=== PATIENT | male | born 1970 | race Caucasian/White ===

== ENCOUNTER 2018-05-23 20:20 | Inpatient (IN) | payer OTHER ==
[2018-05-23] MEDS ORDERED: Acetaminophen 500 MG TAB ONE (22:26)
[2018-05-23 22:30] LABS: Troponin I Less than 0.010 ng/mL (< 0.028)
[2018-05-23] MEDS ORDERED: Acetaminophen 325 MG TAB PO PRN (23:32)
[2018-05-23] MEDS ORDERED: Dextrose 50% Abboject 50 ML SYRINGE SLOW IVP PRN (23:35)
[2018-05-23] MEDS ORDERED: Dextrose 5% in Water 1,000 ML IV PRN (23:35)
[2018-05-24 01:42] LABS: Troponin I Less than 0.010 ng/mL (< 0.028)
[2018-05-24] MEDS: Furosemide 40 MG/4 ML VIAL SLOW IVP SCH ×2 (05:36→13:19)
[2018-05-24 06:14] LABS: #Basophils 0.1 thou/uL (0.0-0.2); #Eosinphils 0.3 thou/uL (0.0-0.7); #Lymphocytes 1.9 thou/uL (1.20-3.40); #Monocytes 0.8 thou/uL (0.11-0.59); #Neutrophils 3.3 thou/uL (1.40-6.50); %Eosinophils 4.5 % (0.0-10.0); %Lymphocytes 30.3 % (21.0-51.0); %Monocytes 12.7 % (0.0-10.0); %Neutrophils 51.5 % (42.0-75.0); Hemoglobin 13.2 g/dL (14.0-18.0); Mean Corpuscular HGB CONC 32.3 g/dL (32.0-36.0); Mean Corpuscular Hemoglobin 31.8 pg (27.0-31.0); Mean Corpuscular Volume 98.3 fL (78.0-98.0); Mean Platelet Volume 8.6 fL (7.4-10.4); Platelet Count 216 thou/uL (130-400); RBC Distribution Width 11.7 % (11.5-14.5); Red Blood Cell (RBC) Count 4.14 mill/uL (4.70-6.10); White Blood Cell (WBC) Count 6.4 thou/uL (4.8-10.8)
[2018-05-24 06:33] LABS: Anion Gap 16 mmol/L (10-20); BUN (Urea Nitrogen) 19 mg/dL (8.9-20.6); Calc. Creatinine Clearance 74 mL/min (70-130); Calcium 8.6 mg/dL (7.8-10.44); Carbon Dioxide 20 mmol/L (22-29); Chloride 104 mmol/L (98-107); Estimated GFR-MDRD 67; Glucose 158 mg/dL (70-105); Potassium 3.6 mmol/L (3.5-5.1); Sodium 136 mmol/L (136-145)
[2018-05-24 06:39] LABS: Troponin I Less than 0.010 ng/mL (< 0.028)
--- NOTE | 2018-05-24 06:39 | HP ---
PRIMARY CARE PHYSICIAN: CODE STATUS: FULL CODE. TIME OF EVALUATION: 9:00 p.m. CHIEF COMPLAINT: Worsening shortness of breath. HISTORY OF PRESENT ILLNESS: This is a 47 years old male patient with past medical history of chronic alcohol abuse. The patient drinks 5-6 beers every day and also history of diabetes who came to the hospital after having gradually worsening shortness of breath. The patient was unable to complete hi s activities of daily living, symptoms are severe worsening with exertion, improved with resting. No fever, no chills, no chest pain, no cough, no sputum production. REVIEW OF SYSTEMS: Constitutional: The patient had no fever or chills. The patient reported genera lized weakness. Respiratory: No cough or sputum production. Cardiovascular: No chest pain, palpit ations. The patient has exertional shortness of breath that improved with rest. Gastrointestinal: No nausea, no vomiting, diarrhea or abdominal pain. 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 Genitourinary: No burning on urination. Extremities: Bilateral leg swelling. All other syst ems are reviewed and negative except for the findings mentioned above. PAST MEDICAL HISTORY: Positive for chronic alcoholism, diabetes type 2. PAST SURGICAL HISTORY: No surgical history. PSYCHIATRIC HISTORY: Depression. SOCIAL HISTORY: The patient use tobacco. KNOWN ALLERGIES: No known drug allergies. REPORTED MEDICATIONS: Please see medication reconciliation for details. PHYSICAL EXAMINATION: VITAL SIGNS: On presentation, blood pressure 84/64 with heart rate 104, respiratory rate was 21, tem perature 98.7, O2 saturation was 99 on room air. The blood pressure has remained in low 90s. GENERAL APPEARANCE: The patient is alert, oriented, not in any acute distress. HEENT: Eyes: Normal conjunctivae. Moist oral mucosa. Anicteric. NECK: Bilateral JVD that is prominent. RESPIRATORY: Bilateral air entry, bilateral rales in the bases. No wheezing. Symmetric expansion. CARDIOVASCULAR: The patient is tachycardic, regular rhythm. No murmurs, no gallop. Bilateral leg e mariel. ABDOMEN: Soft, normal bowel sounds. MUSCULOSKELETAL: Baseline range of motion and strength. No tenderness. SKIN: Warm and intact. No pallor, no rash. No redness. Peripheral pulses are present. Capillary refill seems to be intact. NEUROLOGIC: No evidence of any new focal weakness. Baseline speech. Cranial nerves seem to be inta ct. PSYCHIATRIC: The patient is anxious, optimal judgment. Chest x-ray was reviewed and showed prominent cardiac silhouette and pulmonary vascular with mild rig ht pleural effusion. It is mainly related with congestive heart failure, correlate clinically. He m ay follow up until complete resolution is recommended. EKG was reviewed. The patient has normal sinus rhythm, possible left atrial enlargement acute NC so far. LABORATORY DATA: Prior to transfer paper work and labs were reviewed. Beta natriuretic peptide 2195 , glucose 385, BUN 18, creatinine 1.43, sodium 137, potassium 4.1, chloride 101, carbon dioxide 18, c alcium 9.7, bilirubin total 0.5, alk phos 185. LFTs mildly elevated with AST 59, ALT 78, albumin 4.2 . Beta hydroxybutyrate 2.6. Troponin was negative. Lactic acid 2.6. D-dimer 1.36. ABG was done w ith pH of 7.47, pCO2 of 24 and pO2 of 81 on room air. White count 7.1, hemoglobin 14, MCV 93, platel et count 249. CT angio of the chest was done and that findings were read as follow: The patient has a pulmonary tr unk and main pulmonary arteries are of normal caliber. No pulmonary embolism was seen. Mild pleural effusion and small to moderate right pleural effusion, no pneumothorax, minimal mediastinum, lungs a re clear. ASSESSMENT AND PLAN: The patient will be placed in the hospital with the following medical problem: 1. Acute new onset congestive heart failure, patient has elevated proBNP. CT showing a pleural effu héctor and pulmonary congestion. We will place the patient on diuresis. 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 We will monitor on tele, we will adjust the treatmen t as needed. 2. History of alcohol abuse. The patient takes up to 6 beers on a daily basis. The last time that he drank was 2-3 days ago, reported without any episode of delirium, we will monitor, we will put him on GRAEME protocol and adjust treatment accordingly. 3. History of depression. Reconcile home medications. 4. Deep venous thrombosis prophylaxis.
[2018-05-24] MEDS: Enoxaparin Sodium 40 MG/0.4 ML SYRINGE SC SCH (08:22)
[2018-05-24] MEDS: Aspirin 325 MG TAB PO SCH (08:22)
[2018-05-24] MEDS: Atorvastatin Calcium 10 MG TAB PO SCH (08:22)
[2018-05-24] MEDS: FLUoxetine HCl 20 MG CAP PO SCH (08:22)
--- NOTE | 2018-05-24 16:51 | PDOC.PN ---
- Subjective Encounter Start Date: 05/24/18 Encounter Start Time: 08:50 Pt seen for followup re: systolic CHF exacerbation. Denies chest pain, fevers. Cough+. SOBOE+ - Objective MAR Reviewed: Yes Vital Signs & Weight: Vital Signs (12 hours) Temp Pulse Resp BP 05/24/18 16:00 85 20 96/63 05/24/18 11:46 97.7 F 91 18 96/71 05/24/18 08:00 97.6 F 83 18 95/60 Weight Admit Weight 151 lb 11.2 oz Weight 148 lb 12.8 oz I&O: 05/23/18 05/24/18 05/25/18 06:59 06:59 06:59 Intake Total 350 Balance 350 Result Diagrams: 05/24/18 05:27 05/24/18 05:27 Additional Labs: Accuchecks 05/24/18 05/24/18 05/23/18 11:23 06:14 23:49 POC Glucose 216 H 155 H 94 EKG Reviewed by me: Yes (Tele: NSR) Phys Exam - Physical Examination Constitutional: NAD HEENT: moist MMs, sclera anicteric, oral pharynx no lesions, 2+ tonsils Neck: no nodes, supple, full ROM JVD Respiratory: no wheezing, no rhonchi Venancio crackles Cardiovascular: RRR, no rub S1, S2 Gastrointestinal: soft, non-tender, no distention, positive bowel sounds Neurological: moves all 4 limbs Psychiatric: normal affect, A&O x 3 Dx/Plan (1) Acute on chronic systolic heart failure, NYHA class 3 Code(s): I50.23 - ACUTE ON CHRONIC SYSTOLIC (CONGESTIVE) HEART FAILURE Status : Acute Comment: continue furosemide IV (2) Cardiomyopathy Code(s): I42.9 - CARDIOMYOPATHY, UNSPECIFIED Status: Acute Comment: likely alcohol-induced cardiomyopathy. Start beta anne-marie and ACEI when blood pressure improves. Pt counseled re: alcohol cessation. (3) Hypotension Status: Acute Comment: Start beta anne-marie and ACEI when blood pressure improves. (4) Alcohol abuse Code(s): F10.10 - ALCOHOL ABUSE, UNCOMPLICATED Status: Chronic Comment: pt on ASE protocol, start thiamine (5) DM2 (diabetes mellitus, type 2) Status: Chronic Comment: continue accuchecks, insulin sliding scale (6) Dyslipidemia Code(s): E78.5 - HYPERLIPIDEMIA, UNSPECIFIED Status: Chronic Comment: continue statin - Plan out of bed/ambulate, DVT proph w/lovenox * . Review of Systems - Review of Systems Constitutional: negative: fever, chills, sweats, weakness, malaise Respiratory: Cough, Dry, SOB with Excertion. negative: Shortness of Breath, Hemoptysis, Pleuritic Pain, Sputum, Wheezing Cardiovascular: negative: chest pain, palpitations, orthopnea, paroxysmal nocturnal dyspnea, edema, light headedness Gastrointestinal: negative: Nausea, Vomiting, Abdominal Pain, Diarrhea, Constipation, Melena, Hematochezia Genitourinary: negative: Dysuria, Frequency, Incontinence, Hematuria, Retention Skin: negative: Rash, Lesions, Vikram, Bruising - Medications/Allergies Allergies/Adverse Reactions: Allergies Allergy/AdvReac Type Severity Reaction Status Date / Time No Known Allergies Allergy Verified 05/23/18 23:28 Medications: Current Medications Acetaminophen (Tylenol) 650 mg PO Q4H PRN PRN Reason: Headache/Fever/Mild Pain (1-3) Aspirin (Aspirin) 325 mg PO DAILY [facility] Last Admin: 05/24/18 08:22 Dose: 325 mg Atorvastatin Calcium (Lipitor) 10 mg PO DAILY [facility] Last Admin: 05/24/18 08:22 Dose: 10 mg Dextrose/Water (Dextrose 50%) 25 gm SLOW IVP PRN PRN PRN Reason: Hypoglycemia Enoxaparin Sodium (Lovenox) 40 mg SC 0900 [facility] Last Admin: 05/24/18 08:22 Dose: 40 mg Fluoxetine HCl (Prozac) 40 mg PO DAILY [facility] Last Admin: 05/24/18 08:22 Dose: 40 mg Furosemide (Lasix) 40 mg SLOW IVP 0600,1400 [facility] Last Admin: 05/24/18 13:19 Dose: 40 mg Glucagon (Glucagon) 1 mg IM PRN PRN PRN Reason: Hypoglycemia Dextrose/Water (D5w) 1,000 mls @ 0 mls/hr IV .Q0M PRN PRN Reason: Hypoglycemia Insulin Human Lispro (Humalog) 0 units SC .MILD SLIDING SCALE PRN PRN Reason: Mild Correctional Scale Ondansetron HCl (Zofran) 4 mg IVP Q6H PRN PRN Reason: Nausea/Vomiting
[2018-05-24] MEDS: Thiamine HCl 200 MG/2 ML VIAL SLOW IVP SCH (17:53)
[2018-05-24] MEDS: HumaLOG 300 UNITS/3 ML VIAL SC PRN (17:54)
[2018-05-25] MEDS: Furosemide 40 MG/4 ML VIAL SLOW IVP SCH ×2 (05:19→13:25)
[2018-05-25 05:37] LABS: #Basophils 0.1 thou/uL (0.0-0.2); #Eosinphils 0.2 thou/uL (0.0-0.7); #Monocytes 0.7 thou/uL (0.11-0.59); #Neutrophils 3.4 thou/uL (1.40-6.50); %Basophils 1.2 % (0.0-1.0); %Eosinophils 3.8 % (0.0-10.0); %Lymphocytes 30.7 % (21.0-51.0); %Monocytes 11.4 % (0.0-10.0); Hemoglobin 14.1 g/dL (14.0-18.0); Mean Corpuscular HGB CONC 31.8 g/dL (32.0-36.0); Mean Corpuscular Hemoglobin 31.8 pg (27.0-31.0); Mean Corpuscular Volume 99.7 fL (78.0-98.0); Mean Platelet Volume 8.8 fL (7.4-10.4); Platelet Count 239 thou/uL (130-400); RBC Distribution Width 11.7 % (11.5-14.5); Red Blood Cell (RBC) Count 4.43 mill/uL (4.70-6.10); White Blood Cell (WBC) Count 6.4 thou/uL (4.8-10.8)
[2018-05-25 05:55] LABS: Anion Gap 14 mmol/L (10-20); BUN (Urea Nitrogen) 28 mg/dL (8.9-20.6); Calc. Creatinine Clearance 74 mL/min (70-130); Calcium 8.9 mg/dL (7.8-10.44); Carbon Dioxide 22 mmol/L (22-29); Chloride 101 mmol/L (98-107); Estimated GFR-MDRD 67; Glucose 179 mg/dL (70-105); Potassium 3.9 mmol/L (3.5-5.1); Sodium 133 mmol/L (136-145)
[2018-05-25] MEDS ORDERED: Communication Order-Pharmacy FS SCH (08:30)
[2018-05-25] MEDS: Sodium Chloride 0.9% 1,000 ML IV SCH ×2 (09:33→17:57)
--- NOTE | 2018-05-25 10:19 | PDOC.CTH ---
Cardiology Progress Note - Subjective C/O SOB. No CP. C/O coughing. Dry. Did walk in guy yesterday. - Objective Vital Signs Temp Pulse Resp BP BP Pulse Ox 05/25/18 08:00 98.1 F 89 18 105/75 98 05/25/18 04:36 98.2 F 90 17 103/71 98 05/24/18 23:00 103/74 Admit Weight 151 lb 11.2 oz Weight 149 lb 9.6 oz 05/24/18 05/25/18 05/26/18 06:59 06:59 06:59 Intake Total 350 1610 Output Total 1900 Balance 350 -290 - Physical Examination General/Neuro: alert & oriented x3 Neck: no JVD present Lungs: other: (decreased BS at bases) Heart: RRR Abdomen: NT/ND Extremities: other: (no edema) - Telemetry Telemetry Rhythm: SR - Labs Result Diagrams: 05/25/18 04:54 05/25/18 04:54 Troponin/CKMB Troponin I Less than 0.010 ng/mL (< 0.028) 05/24/18 05:28 - Assessment/Plan 1. Acute on chronic systolic CHF 2. Severe ROVING SIZER (EF 15-20%) 3. History of heavy alcohol use 4. Uncontrolled DM-II Continue diuresis. Plan for LHC to r/o CAD when euvolemic.
[2018-05-25] MEDS: FLUoxetine HCl 20 MG CAP PO SCH (10:44)
[2018-05-25] MEDS: Enoxaparin Sodium 40 MG/0.4 ML SYRINGE SC SCH (10:44)
[2018-05-25] MEDS: Atorvastatin Calcium 10 MG TAB PO SCH (10:44)
[2018-05-25] MEDS: Aspirin 325 MG TAB PO SCH (10:44)
[2018-05-25] MEDS: Ondansetron HCl/PF 4 MG/2 ML Vial IVP PRN (10:47)
--- NOTE | 2018-05-25 11:16 | CON ---
DATE OF CONSULTATION: 05/25/2018 REASON FOR CONSULTATION: Cardiomyopathy. HISTORY OF PRESENT ILLNESS: Mr. Bhagat is a 47-year-old gentleman who has not been seen by Cardiology in the past. He recently presented with increased shortness of breath and lower extremity edema. _ ___ last 2-3 weeks. No chest pain or pressure noted. He has a very strong alcohol history, drinking 6-12 alcoholic beverages per day. No previous history of underlying coronary artery disease. No pr evious history of cardiomyopathy in his family. PAST MEDICAL HISTORY: Diabetes mellitus, alcohol use. FAMILY HISTORY: Positive tobacco use. ALLERGIES: None. HOME MEDICATIONS: Glyburide/metformin, fluoxetine, Trulicity, Invokana and atorvastatin. REVIEW OF SYSTEMS: Ten point review of system is reviewed and as above, otherwise negative, review d ate is 05/24/2018. PHYSICAL EXAMINATION: VITAL SIGNS: Blood pressure 105/75, pulse 89, temperature afebrile. GENERAL: Patient is a pleasant male who is in no acute distress. The patient appears his stated age . NEUROLOGIC: The patient is alert and oriented times 3 with no focal neurologic deficits. HEENT: Sclerae without icterus. Mouth has moist mucous membranes with normal pallor. NECK: No JVD. Carotid upstroke brisk. No bruits bilaterally. LUNGS: Clear to auscultation with unlabored respirations. BACK: No scoliosis or kyphosis. CARDIAC: Regular rate and rhythm with normal S1 and S2. No S3 or S4 noted. No significant rubs, mu rmurs, thrills, or gallops noted throughout the precordium. PMI is not displaced. There is no sandy ternal heave. ABDOMEN: Soft, nontender, nondistended. No peritoneal signs present. No hepatosplenomegaly. No ab normal striae. EXTREMITIES: 1-2+ pitting edema. SKIN: No gross abnormalities. PERTINENT LABS: Hemoglobin 14.1, white blood cell count 6.4, creatinine 1.16, platelet count 239, wh ite blood cell count 6.4. Echo with Doppler shows LVEF 15%-20%. LV appears mildly dilated. IMPRESSION: 1. New onset cardiomyopathy. 2. Alcohol abuse. 3. Diabetes mellitus. RECOMMENDATIONS: Mr. Bhagat's main risk factor for underlying coronary artery disease is diabetes justina litus. His cardiomyopathy likely related to alcohol abuse. I discussed the importance of alcohol ce ssation, but will need assistance. He states he recently decreased his alcohol consumption over the last week significantly to 1-2 alcoholic beverages per day and was concerned about his symptoms. At this point, I would recommend low dose beta anne-marie therapy initiation of treatment. ____ be given. I also discussed coronary angiography plus PCI with Mr. Bhagat. The risks of the procedure include bu t are not limited to the following: , stroke, LA, need for emergency surgery, loss of limb, ble eding, and infection, as well as a reaction to the dye causing kidney failure and needing long-term d ialysis. I also discussed the risks of PCI to include all of the above including coronary dissection and perforation in addition to acute stent thrombosis and restenosis. All questions about the proce dure were answered. Given the above, the patient agreed to proceed with coronary angiography and pos sible PCI. I also discussed drug-coated versus nondrug coated stent placement. There are ____. We will proceed if needed. He states he can be compliant with medications. He also need a LifeVest. 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 I did state he will need to discuss this with his employer.
--- NOTE | 2018-05-25 17:46 | PDOC.PN ---
- Subjective Encounter Start Date: 05/25/18 Encounter Start Time: 08:40 Pt seen for followup re: systolic CHF exacerbation. Denies chest pain. Shortness of breath is better. Cough+ - Objective MAR Reviewed: Yes Vital Signs & Weight: Vital Signs (12 hours) Temp Pulse Pulse Pulse Resp BP BP 05/25/18 16:00 97.8 F 88 17 05/25/18 13:06 94 90 114/71 105/75 05/25/18 12:00 97.5 F L 91 16 05/25/18 08:00 98.1 F 89 18 BP Pulse Ox Pulse Ox 05/25/18 16:00 104/72 96 05/25/18 13:06 95 05/25/18 12:00 105/76 95 05/25/18 08:00 105/75 98 Weight Admit Weight 151 lb 11.2 oz Weight 149 lb 9.6 oz I&O: 05/24/18 05/25/18 05/26/18 06:59 06:59 06:59 Intake Total 350 1610 600 Output Total 1900 1200 Balance 350 -290 -600 Result Diagrams: 05/25/18 04:54 05/25/18 04:54 Additional Labs: Accuchecks 05/25/18 05/25/18 05/25/18 17:02 10:51 06:18 POC Glucose 320 H 149 H 173 H 05/24/18 05/24/18 20:13 17:44 POC Glucose 227 H 351 H EKG Reviewed by me: Yes (Tele: NSR) Phys Exam - Physical Examination Constitutional: NAD HEENT: moist MMs, sclera anicteric, oral pharynx no lesions, 2+ tonsils Neck: no nodes, no JVD, supple, full ROM Biul crackles Cardiovascular: RRR, no rub S1, S2 Gastrointestinal: soft, non-tender, no distention, positive bowel sounds Neurological: moves all 4 limbs Psychiatric: normal affect, A&O x 3 Dx/Plan (1) Acute on chronic systolic heart failure, NYHA class 3 Code(s): I50.23 - ACUTE ON CHRONIC SYSTOLIC (CONGESTIVE) HEART FAILURE Status : Acute Comment: Improving, continue IV furosemide (2) Cardiomyopathy Code(s): I42.9 - CARDIOMYOPATHY, UNSPECIFIED Status: Acute Comment: likely alcohol-induced cardiomyopathy. Blood pressure improving, will start Coreg. If tolerated, will add ACEI. Pt to go for cath to r/o ischemic etiology (3) Hypotension Status: Acute Comment: Improved (4) Alcohol abuse Code(s): F10.10 - ALCOHOL ABUSE, UNCOMPLICATED Status: Chronic Comment: pt on ASE protocol (5) DM2 (diabetes mellitus, type 2) Status: Chronic Comment: Sugars high but pt will be NPO tonight. Add glyburide when pt is eating again, add metformin 48 hrs after cath (6) Dyslipidemia Code(s): E78.5 - HYPERLIPIDEMIA, UNSPECIFIED Status: Chronic Comment: continue statin - Plan * . Review of Systems - Review of Systems Constitutional: negative: fever, chills, sweats, weakness, malaise Respiratory: Cough, Dry, SOB with Excertion. negative: Shortness of Breath, Hemoptysis, Pleuritic Pain, Sputum, Wheezing Cardiovascular: negative: chest pain, palpitations, orthopnea, paroxysmal nocturnal dyspnea, edema, light headedness Gastrointestinal: negative: Nausea, Vomiting, Abdominal Pain, Diarrhea, Constipation, Melena, Hematochezia Genitourinary: negative: Dysuria, Frequency, Incontinence, Hematuria, Retention Skin: negative: Rash, Lesions, Vikram, Bruising - Medications/Allergies Allergies/Adverse Reactions: Allergies Allergy/AdvReac Type Severity Reaction Status Date / Time No Known Allergies Allergy Verified 05/23/18 23:28 Medications: Current Medications Acetaminophen (Tylenol) 650 mg PO Q4H PRN PRN Reason: Headache/Fever/Mild Pain (1-3) Aspirin (Aspirin) 325 mg PO DAILY [facility] Last Admin: 05/25/18 10:44 Dose: 325 mg Atorvastatin Calcium (Lipitor) 10 mg PO DAILY [facility] Last Admin: 05/25/18 10:44 Dose: 10 mg Dextrose/Water (Dextrose 50%) 25 gm SLOW IVP PRN PRN PRN Reason: Hypoglycemia Enoxaparin Sodium (Lovenox) 40 mg SC 0900 [facility] Stop: 05/25/18 21:00 Last Admin: 05/25/18 10:44 Dose: 40 mg Fluoxetine HCl (Prozac) 40 mg PO DAILY [facility] Last Admin: 05/25/18 10:44 Dose: 40 mg Furosemide (Lasix) 60 mg SLOW IVP 0600,1400 [facility] Last Admin: 05/25/18 13:25 Dose: 60 mg Glucagon (Glucagon) 1 mg IM PRN PRN PRN Reason: Hypoglycemia Dextrose/Water (D5w) 1,000 mls @ 0 mls/hr IV .Q0M PRN PRN Reason: Hypoglycemia Sodium Chloride (Normal Saline 0.9%) 1,000 mls @ 100 mls/hr IV .Q10H [facility] Last Admin: 05/25/18 09:33 Dose: Not Given Insulin Human Lispro (Humalog) 0 units SC .MILD SLIDING SCALE PRN PRN Reason: Mild Correctional Scale Last Admin: 05/24/18 17:54 Dose: 5 units Metoprolol Succinate (Toprol Xl) 25 mg PO DAILY [facility] Miscellaneous Information (Communication Order-Pharmacy) 0 each FS ASDIR [facility] Ondansetron HCl (Zofran) 4 mg IVP Q6H PRN PRN Reason: Nausea/Vomiting Last Admin: 05/25/18 10:47 Dose: 4 mg Thiamine HCl (Thiamine Hcl) 100 mg SLOW IVP 1800 [facility] Last Admin: 05/24/18 17:53 Dose: 100 mg
[2018-05-25] MEDS: Thiamine HCl 200 MG/2 ML VIAL SLOW IVP SCH (17:56)
[2018-05-25] MEDS: HumaLOG 300 UNITS/3 ML VIAL SC PRN (17:57)
[2018-05-26] MEDS: Benzonatate 100 MG CAP PO PRN ×2 (00:35→08:37)
[2018-05-26] MEDS: Sodium Chloride 0.9% 1,000 ML IV SCH ×2 (05:45→17:00)
[2018-05-26] MEDS: Aspirin 325 MG TAB PO SCH (05:46)
[2018-05-26] MEDS: Atorvastatin Calcium 10 MG TAB PO SCH (05:46)
[2018-05-26] MEDS: Carvedilol 3.125 MG TAB PO SCH ×2 (05:46→18:07)
[2018-05-26] MEDS: Furosemide 40 MG/4 ML VIAL SLOW IVP SCH ×2 (05:47→14:13)
[2018-05-26] MEDS ORDERED: Lidocaine 1% (PF) 30 ML VIAL ONE (06:38)
[2018-05-26] MEDS ORDERED: Heparin 10,000 UNITS/1 ML VIAL ONE (06:47)
[2018-05-26] MEDS ORDERED: Verapamil 5 MG/2 ML VIAL ONE (06:47)
[2018-05-26] MEDS ORDERED: Nitroglycerin 100MG/250ML BOT 250 ML ONE (06:47)
[2018-05-26] MEDS ORDERED: Fentanyl 100 MCG/2 ML VIAL ONE (07:14)
[2018-05-26] MEDS ORDERED: Midazolam HCl 2 mg/2 ml Vial ONE (07:14)
[2018-05-26] MEDS ORDERED: Acetaminophen/Codeine 30-300mg Tablet PO PRN (07:36)
[2018-05-26] MEDS ORDERED: traMADol HCl 50 MG TAB PO PRN (07:36)
[2018-05-26] MEDS ORDERED: Nitroglycerin 0.4 MG TAB (25 Tab Bottle) SL PRN (07:36)
[2018-05-26] MEDS ORDERED: Sodium Chloride 0.9% 1,000 ML IV SCH (07:45)
[2018-05-26] MEDS ORDERED: Sodium Chloride 0.9% 200 ML IV PRN (07:45)
[2018-05-26] MEDS: FLUoxetine HCl 20 MG CAP PO SCH (08:36)
[2018-05-26] MEDS: DOBUTamine 500 mg/250 ml 250 ML IVPB SCH (12:03)
[2018-05-26] MEDS ORDERED: Iopamidol 370 76% 100 ML VIAL ONE (12:15)
[2018-05-26] MEDS: Ondansetron HCl/PF 4 MG/2 ML Vial IVP PRN ×2 (14:13→21:02)
[2018-05-26] MEDS: Thiamine HCl 200 MG/2 ML VIAL SLOW IVP SCH (18:07)
[2018-05-26] MEDS: HumaLOG 300 UNITS/3 ML VIAL SC PRN (21:03)
[2018-05-27] MEDS: FLUoxetine HCl 20 MG CAP PO SCH (08:51)
[2018-05-27] MEDS: Aspirin 325 MG TAB PO SCH (08:51)
[2018-05-27] MEDS: Carvedilol 3.125 MG TAB PO SCH (08:52)
[2018-05-27] MEDS: Benzonatate 100 MG CAP PO PRN ×2 (08:52→20:51)
[2018-05-27] MEDS: Atorvastatin Calcium 10 MG TAB PO SCH (08:52)
[2018-05-27] MEDS: Furosemide 40 MG/4 ML VIAL SLOW IVP SCH (08:53)
[2018-05-27] MEDS: HumaLOG 300 UNITS/3 ML VIAL SC PRN (12:31)
[2018-05-27] MEDS: DOBUTamine 500 mg/250 ml 250 ML IVPB SCH (12:32)
[2018-05-27] MEDS: Ondansetron HCl/PF 4 MG/2 ML Vial IVP PRN ×2 (12:37→18:27)
--- NOTE | 2018-05-27 13:33 | PDOC.CTH ---
Cardiology Progress Note - Subjective Pt still with cough although improved. No changes in weight noted. Still hypotensive. - Objective Vital Signs Temp Pulse Pulse Pulse Resp BP BP 05/27/18 12:00 97.1 F L 84 17 05/27/18 11:57 85 80 91/65 93/66 05/27/18 07:37 05/27/18 07:32 96.7 F L 82 17 05/27/18 04:00 97.8 F 85 24 H BP Pulse Ox 05/27/18 12:00 96/69 93 L 05/27/18 11:57 05/27/18 07:37 92 L 05/27/18 07:32 97/64 92 L 05/27/18 04:00 86/58 L 92 L Admit Weight 151 lb 11.2 oz Weight 149 lb 3.201 oz 05/26/18 05/27/18 05/28/18 06:59 06:59 06:59 Intake Total 600 464 Output Total 1800 950 Balance -1200 -486 - Physical Examination General/Neuro: alert & oriented x3, NAD Neck: carotid US brisk, no JVD present Lungs: other: (mild crackles bilaterally) Abdomen: no HSM, NT/ND, soft Extremities: + femoral B - Labs Result Diagrams: 05/25/18 04:54 05/25/18 04:54 Troponin/CKMB Troponin I Less than 0.010 ng/mL (< 0.028) 05/24/18 05:28 - Assessment/Plan NICM EtOH abuse cough Stop coreg Hold lasix for now Check CXR Continue with dobutrex Check BNP
--- NOTE | 2018-05-27 14:28 | PDOC.PN ---
- Subjective Encounter Start Date: 05/27/18 Encounter Start Time: 14:20 Subjective: f/u for NICM with EF 15% on prior Lasix now held and Dobutamine for -: hypotension. c/o cough and was fitted for LifeVest today. - Objective MAR Reviewed: Yes Vital Signs & Weight: Vital Signs (12 hours) Temp Pulse Pulse Pulse Resp BP BP 05/27/18 12:00 97.1 F L 84 17 05/27/18 11:57 85 80 91/65 93/66 05/27/18 07:37 05/27/18 07:32 96.7 F L 82 17 05/27/18 04:00 97.8 F 85 24 H BP Pulse Ox 05/27/18 12:00 96/69 93 L 05/27/18 11:57 05/27/18 07:37 92 L 05/27/18 07:32 97/64 92 L 05/27/18 04:00 86/58 L 92 L Weight Admit Weight 151 lb 11.2 oz Weight 149 lb 3.201 oz I&O: 05/26/18 05/27/18 05/28/18 06:59 06:59 06:59 Intake Total 600 464 Output Total 1800 950 Balance -1200 -486 Result Diagrams: 05/25/18 04:54 05/25/18 04:54 Additional Labs: Accuchecks 05/27/18 05/27/18 05/26/18 11:01 05:49 20:48 POC Glucose 285 H 277 H 292 H 05/26/18 17:04 POC Glucose 176 H Laboratory Tests 05/27/18 13:31 B-Natriuretic Peptide 2072.6 H Radiology Reviewed by me: Yes (PCXR - pulm vasc prominence) EKG Reviewed by me: Yes (Tele - SR) Phys Exam - Physical Examination Constitutional: NAD HEENT: PERRLA, sclera anicteric, oral pharynx no lesions Neck: no nodes, no JVD, supple, full ROM Respiratory: no wheezing, no rales, no rhonchi, clear to auscultation bilateral II/ FACUNDO LUSB S1, S2 Cardiovascular: RRR, no rub, gallop Gastrointestinal: soft, non-tender, no distention, positive bowel sounds mild edema on feet Musculoskeletal: pulses present Neurological: normal sensation, moves all 4 limbs Psychiatric: normal affect, A&O x 3 Skin: normal turgor, cap refill <2 seconds Dx/Plan (1) Acute on chronic systolic heart failure, NYHA class 3 Code(s): I50.23 - ACUTE ON CHRONIC SYSTOLIC (CONGESTIVE) HEART FAILURE Status : Acute Comment: Lasix held due to hypotension, continue supportive mgmt, Dobutamine gtt (2) Nonischemic cardiomyopathy Code(s): I42.8 - OTHER CARDIOMYOPATHIES Status: Chronic Comment: EF 15%, Dobutamine gtt (3) Hypotension Status: Acute Comment: Persistent due to NICM, Dobutamine gtt, hold Coreg and Lasix (4) Alcohol abuse Code(s): F10.10 - ALCOHOL ABUSE, UNCOMPLICATED Status: Chronic Comment: pt on ASE protocol (5) DM2 (diabetes mellitus, type 2) Status: Chronic Comment: Resume home DM regimen, ISS, ADA - Plan plan discussed w/ family, out of bed/ambulate Stable overall -: Dobutamine gtt -: Lasix on hold -: Coreg on hold -: Add Robitussin prn * AM lab: BMP
[2018-05-27] MEDS: Guaifenesin DM 100-10/5 ML UDCUP PO PRN (15:28)
--- NOTE | 2018-05-27 15:29 | RAD ---
CHEST TWO VIEWS: History: CHF. Comparison: 05-23-18 FINDINGS: There is increased layering right pleural effusion. There is a right lower lobe airspace opacity. Lef t lung is relatively clear. No pneumothorax. No acute osseous abnormality. IMPRESSION: Moderate size increase in layering right pleural effusion. There is compressive right lower and middl e lobe atelectasis. POS: H
[2018-05-27] MEDS ORDERED: metFORMIN 500 MG TAB PO SCH (17:00)
[2018-05-27] MEDS: glyBURIDE 5 MG TAB PO SCH (17:35)
[2018-05-27] MEDS ORDERED: DOPamine 400 MG/D5W 250 ML 250 ML ONE (18:04)
[2018-05-27 18:42] LABS: #Basophils 0.1 thou/uL (0.0-0.2); #Eosinphils 0.2 thou/uL (0.0-0.7); #Lymphocytes 1.4 thou/uL (1.20-3.40); #Monocytes 0.7 thou/uL (0.11-0.59); %Basophils 1.2 % (0.0-1.0); %Eosinophils 3.3 % (0.0-10.0); %Monocytes 11.4 % (0.0-10.0); %Neutrophils 62.1 % (42.0-75.0); Hemoglobin 14.4 g/dL (14.0-18.0); Mean Corpuscular HGB CONC 32.7 g/dL (32.0-36.0); Mean Corpuscular Hemoglobin 32.4 pg (27.0-31.0); Mean Corpuscular Volume 99.1 fL (78.0-98.0); Mean Platelet Volume 8.9 fL (7.4-10.4); Platelet Count 240 thou/uL (130-400); RBC Distribution Width 11.8 % (11.5-14.5); Red Blood Cell (RBC) Count 4.46 mill/uL (4.70-6.10); White Blood Cell (WBC) Count 6.4 thou/uL (4.8-10.8)
--- NOTE | 2018-05-27 18:45 | PRG ---
DATE OF SERVICE: 05/27/2018 Mr. Bhagat this afternoon continues to be hypotensive. Blood pressure in the low 80s. He continues w ith cough. I did give him a 500 mL bolus of fluid. I also stopped his Coreg, which was recently started by Dr. Yoder. Due to continued persistent hypotension with dizziness, I decided to transfer the patient to the ICU. I have consulted with Dr. Rusty Cobos. We will add low-dose dopamine at 5 mcg. I have asked Dr. Cobos to place a subclavian central line. I am unsure whether the patient's symptoms are related to his current cardiomyopathy. He has had min imal urine output with no significant changes in his weight over the last 3 days. We will recheck hi s BNP and CBC. His chest x-ray today showed increase in right-sided pleural effusion with right lowe r and middle lobe atelectasis. Again, I have consulted with Dr. Rusty Cobos.
[2018-05-27] MEDS ORDERED: Lidocaine 1% (PF) 30 ML VIAL ONE (18:47)
[2018-05-27 19:02] LABS: Anion Gap 16 mmol/L (10-20); BUN (Urea Nitrogen) 37 mg/dL (8.9-20.6); Calc. Creatinine Clearance 55 mL/min (70-130); Calcium 8.8 mg/dL (7.8-10.44); Carbon Dioxide 21 mmol/L (22-29); Chloride 99 mmol/L (98-107); Estimated GFR-MDRD 47; Glucose 263 mg/dL (70-105); Potassium 3.9 mmol/L (3.5-5.1); Sodium 132 mmol/L (136-145)
[2018-05-27] MEDS: Thiamine HCl 200 MG/2 ML VIAL SLOW IVP SCH (20:51)
--- NOTE | 2018-05-27 20:55 | RAD ---
CHEST ONE VIEW: 05/27/18 HISTORY: Line placement. COMPARISON: Earlier exam on the same date. FINDINGS: The cardiac silhouette is magnified and upper limits of normal in size. pulmonary vasculature is uppe r limits of normal. Increased parenchymal opacity is present throughout the right lower lobe. Tip of a right internal jugular central venous catheter overlies the right atrium. Lung markings extend beyo nd the skin fold at the right apex that mimics a pneumothorax. IMPRESSION: Right internal jugular central venous catheter is in good radiographic position. Increasing parenchymal opacity at the right lower lobe. Clinical correlation regarding other signs an d symptoms of right lower lobe pneumonitis is required. POS: [facility]
--- NOTE | 2018-05-28 02:19 | CON ---
DATE OF CONSULTATION: 05/27/2018 CRITICAL CARE TIME: 45 minutes. CONSULTING PHYSICIAN: Dr. Plascencia. REASON FOR CONSULTATION: Hypotension. HISTORY OF PRESENT ILLNESS: A 47-year-old male who was admitted to the hospital on 018 with increasing shortness of breath. He has been found to have a nonischemic cardiomyopathy with EF of 15-20%. The patient underwent cardiac catheterization which showed no significant coronary ar dony disease. He has been on dobutamine drip on the floor, but has become progressively hypotensive today and was transferred to the CCU for the dopamine infusion. PAST MEDICAL HISTORY: 1. Alcoholic. 2. Diabetes mellitus type 2. PAST SURGICAL HISTORY: None. PSYCHIATRIC HISTORY: Depression. SOCIAL HISTORY: He smokes. He drinks about a 6 pack per day. 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 ALLERGIES: None. MEDICATIONS PRIOR TO ADMISSION: Glyburide/metformin, fluoxetine, Trulicity, Invokana and atorvastati n. REVIEW OF SYSTEMS: Twelve-point review of systems is otherwise negative. PHYSICAL EXAMINATION: VITAL SIGNS: Temperature 97.7, heart rate 91, blood pressure 96/68, respiratory rate 18, O2 sat 92%, currently on dopamine 5 mcg per kilogram per minute. NEUROLOGIC: He moves all 4 extremities. is alert and oriented. No cranial nerve deficits. HEENT: Pupils react. Sclerae anicteric. Oropharynx clear. NECK: He has profound JVD, which is probably about 8 cm angle of the jaw when he has had a 45-degree position. No bruits. CARDIOVASCULAR: S1, S2 regular without audible murmur. LUNGS: He has some inspiratory crackles both bases, some dullness to percussion in the right base. ABDOMEN: Soft, nontender, nondistended. EXTREMITIES: No clubbing, cyanosis, trace pedal edema. LABORATORY DATA: White blood cell count 6.4, hemoglobin 14, hematocrit 44.2, platelet count 240 with 62% neutrophils, no bands. Sodium 132, potassium 3.9, chloride 99, CO2 of 21, BUN 37, creatinine 1. 5, glucose 263, BNP 2072. TSH 8.45. Chest x-ray shows a small right pleural effusion. I have place d a right IJ central line which is in good position. There is no evidence of pneumothorax. ASSESSMENT: 1. Congestive heart failure. 2. Nonischemic cardiomyopathy with profound systolic dysfunction. 3. Hypotension secondary to heart failure. 4. Acute renal insufficiency. 5. Alcoholism. 6. Diabetes mellitus. PLAN: 1. Right IJ central line has been placed for the purpose of infusing dopamine -- see separate operat maria e report. 2. The central line will be used for continuous cardiac output monitoring. 3. The patient is on thiamine because of his alcoholism. 4. Sliding scale insulin. I would consider discontinuing the metformin given his renal insufficienc y and just using insulin for the time being. We will follow.
--- NOTE | 2018-05-28 02:20 | OP ---
DATE OF PROCEDURE: 05/27/2018 PROCEDURE: Right IJ triple-lumen central line placement. PREOPERATIVE DIAGNOSIS: Central access needed for administration of vasopressor therapy. POSTOPERATIVE DIAGNOSIS: Central access needed for administration of vasopressor therapy. ANESTHESIA: 1% lidocaine without epinephrine. DESCRIPTION OF PROCEDURE: Informed consent was obtained from the patient. He understood the risks i nvolved and agreed to proceed. The patient was placed in Trendelenburg position. The right IJ area was first visualized by ultrasou nd to promptly notify the right IJ vein which was large in size. Chlorhexidine was used to scrub the entry site. The site was then sterilely draped. A 1% lidocaine was used to anesthetize the entry s ite. Using modified Seldinger technique and Arango triple-lumen central venous catheter was placed without difficulty. Three ports flushed venous blood. Placement was further confirmed by radiograph y. There was no evidence of pneumothorax. The patient tolerated the procedure well.
[2018-05-28 04:57] LABS: #Lymphocytes 1.1 thou/uL (1.20-3.40); #Monocytes 0.6 thou/uL (0.11-0.59); #Neutrophils 4.1 thou/uL (1.40-6.50); %Basophils 0.8 % (0.0-1.0); %Eosinophils 0.8 % (0.0-10.0); %Monocytes 9.8 % (0.0-10.0); %Neutrophils 69.6 % (42.0-75.0); Hemoglobin 13.2 g/dL (14.0-18.0); Mean Corpuscular HGB CONC 32.5 g/dL (32.0-36.0); Mean Corpuscular Hemoglobin 31.9 pg (27.0-31.0); Mean Corpuscular Volume 98.3 fL (78.0-98.0); Mean Platelet Volume 8.3 fL (7.4-10.4); Platelet Count 206 thou/uL (130-400); RBC Distribution Width 11.7 % (11.5-14.5); Red Blood Cell (RBC) Count 4.14 mill/uL (4.70-6.10)
[2018-05-28 05:07] LABS: Anion Gap 17 mmol/L (10-20); BUN (Urea Nitrogen) 33 mg/dL (8.9-20.6); Calc. Creatinine Clearance 69 mL/min (70-130); Calcium 8.7 mg/dL (7.8-10.44); Carbon Dioxide 22 mmol/L (22-29); Chloride 97 mmol/L (98-107); Estimated GFR-MDRD 62; Glucose 229 mg/dL (70-105); Potassium 3.6 mmol/L (3.5-5.1); Sodium 132 mmol/L (136-145)
[2018-05-28] MEDS: DOBUTamine 500 mg/250 ml 250 ML IVPB SCH ×2 (05:14→16:09)
[2018-05-28] MEDS: DOPamine 400 MG/D5W 250 ML 250 ML IVPB SCH (05:14)
[2018-05-28] MEDS: HumaLOG 300 UNITS/3 ML VIAL SC PRN ×4 (05:37→21:42)
--- NOTE | 2018-05-28 08:34 | CON ---
DATE OF CONSULTATION: 05/28/2018 CRITICAL CARE NOTE Total critical care time 35 minutes. HISTORY OF PRESENT ILLNESS: Mr. Bhagat was transferred yesterday to the ICU from the floor. He requi red more dopamine support. His blood pressure was low. He had a central line placed by Dr. Rusty Cobos last evening. He was placed on dopamine and dobuta mine. He did have noninvasive cardiac index and a stroke volume performed. His cardiac index is est imated at 3.0. His CVP is 15. He continues with cough. OBJECTIVE: VITAL SIGNS: Blood pressure 93/70, pulse 94, respirations 20. GENERAL: Patient is a pleasant male who is in no acute distress. The patient appears his stated age. NEUROLOGIC: The patient is alert and oriented times 3 with no focal neurologic deficits. HEENT: Sclerae without icterus. Mouth has moist mucous membranes with normal pallor. NECK: No JVD. Carotid upstroke brisk. No bruits bilaterally. LUNGS: Minimal crackles at bases bilaterally. BACK: No scoliosis or kyphosis. CARDIAC: Regular rate and rhythm with normal S1 and S2. No S3 or S4 noted. No significant rubs, mur murs, thrills, or gallops noted throughout the precordium. PMI is not displaced. There is no parast ernal heave. ABDOMEN: Soft, nontender, nondistended. No peritoneal signs present. No hepatosplenomegaly. No abn ormal striae. EXTREMITIES: 2+ femoral and 2+ dorsalis pedis pulses. No cyanosis, clubbing, or edema. SKIN: No gross abnormalities. PERTINENT LABS: Hemoglobin 13.2, creatinine 1.25, which is down from 1.57. TSH 8.4. BNP of 2000. IMPRESSION: 1. Class III-IV heart failure. 2. Hypotension. 3. Nonischemic cardiomyopathy. RECOMMENDATIONS: I discussed the case with Dr. Rusty Cobos once again. We will increase his Dobut john for better inotropic support. At this point, if this fails, may consider transferring to a [facility]. Given the correlation with a Verbank-Marlo catheter and a current noninvasive cardiac output monitoring there is no need to proceed with a more invasive testing.
[2018-05-28] MEDS ORDERED: Non-Formulary Item 1 EACH (Canagliflozin [Invokana] 300 MG) PO SCH (09:00)
[2018-05-28] MEDS ORDERED: Insulin Glargine 10 UNITS in Pre-Filled Syringe 1 EACH SC SCH (09:00)
--- NOTE | 2018-05-28 09:03 | PRG ---
DATE OF SERVICE: 05/28/2018 Thirty-five minutes critical care time. The patient remains in the CCU on continuous cardiac output monitoring. He says he is breathing some what better today compared to yesterday. He is trying to sit up and eat. PHYSICAL EXAMINATION: VITAL SIGNS: Temperature 97.8, pulse 92, blood pressure 89/63, O2 sat 98%. He is currently on dobut amine at 7.5 mcg per kilogram per minute and dopamine at 5 mcg per kilogram per minute. Total intake for the last 24 hours was 464 mL, output 950 mL. Weight 149 pounds. HEENT: Pupils react. Sclerae icteric. Oropharynx clear. NECK: Without adenopathy, but he does have 8 cm JVD, no bruits are audible. LUNGS: He has diminished breath sounds in the right base compared to left. He has crackles in both bases. CARDIOVASCULAR: S1, S2, slightly tachycardic without murmur. ABDOMEN: Soft, nontender, nondistended. EXTREMITIES: No clubbing, cyanosis, or edema. LABORATORY DATA: Sodium 132, potassium 3.6, chloride 97, CO2 22, BUN 33, creatinine 1.2, glucose 229 . White blood cell count 6.0, hematocrit 40.7, platelet count 206. ASSESSMENT: 1. The patient has cardiogenic shock from class IV heart failure. Currently, his cardiac index is r unning about 2.7 with an SVR of 1160 and a stroke volume of 55. 2. Diabetes mellitus. 3. Nonischemic cardiomyopathy. 4. Acute renal insufficiency has improved on the dopamine and dobutamine. 5. Alcoholism. PLAN: 1. I discussed with Dr. Plascencia. We will increase his dobutamine to see if we can increase his ca rdiac output further. 2. Metformin has been stopped because of the patient's renal insufficiency. I would hold this for s everal days until we have seen improvement. 3. Okay to continue with glyburide. 4. Add low dose Lantus insulin. 5. Continue with thiamine. 6. Continue to monitor labs on daily basis.
[2018-05-28] MEDS: Enoxaparin Sodium 40 MG/0.4 ML SYRINGE SC SCH (11:08)
[2018-05-28] MEDS: FLUoxetine HCl 20 MG CAP PO SCH (11:08)
[2018-05-28] MEDS: glyBURIDE 5 MG TAB PO SCH ×2 (11:09→17:23)
[2018-05-28] MEDS: Atorvastatin Calcium 10 MG TAB PO SCH (11:16)
--- NOTE | 2018-05-28 11:42 | PQF ---
DATE: 05-28-18 ATTN: DR. MAXI MIXON Please exercise your independent, professional judgment in responding to the clarification form. Clinical indicators are provided on the bottom of this form for your review Please check appropriate box(s): [ ] Acute Renal Failure (ARF) / Acute Kidney Injury (SEBASTIAN) [ ] Abnormal Lab Values [ ] Other diagnosis [ ] Unable to determine In addition, please specify: Present on Admission (POA): [ ] Yes [ ] No [ ] Unable to determine National Kidney Foundation Guidelines for CKD Staging Stage I Kidney damage with normal or increased GFR GFR > 90 Stage II Kidney damage with mildly decreased GFR GFR 60-89 Stage III Kidney damage with moderately decreased GFR GFR 30-59 Stage IV Kidney damage with severely decreased GFR GFR 16-29 Stage V Kidney failure GFR<15 ESRD End Stage Renal Disease On dialysis Acute Renal Failure/Acute Kidney Failure defined as: Increases in SCr by (>) 0.3 mg/dl within 48 hours OR- Increases in SCr by (>) 1.5 times baseline, known or presumed to have occurred within the prior 7 days OR- Urine volume < 0.5 ml/kg/hour for 6 hours (KDIGO supplement 2012 for RIFLE/AMANDA criteria) For continuity of documentation, please document condition throughout progress notes and discharge summary. Thank You. CLINICAL INDICATORS - SIGNS / SYMPTOMS / LABS GFR: 05-24-18: 67 05-25-18: 67 05-27-18: 47 05-28-18: 62 CREATININE: 05-24-18: 1.17 : 1.16 05-27-18: 1.57 05-28-18: 1.25 BUN: 05-24-18: 19 05-25-18: 28 10: 37 05-28-18: [address] CAMPBELL 05-27-18: ACUTE RENAL INSUFFICIENCY, HYPOTENSION SECONDARY T HEART FAILURE RISK FACTORS: CONSULT NOTE DR. CAMPBELL 05-27-18: ACUTE RENAL INSUFFICIENCY, HYPOTENSION SECONDARY T HEART FAILURE H&P: CHRONIC ALCOHOL ABUSE, DM 2, HYPOTENSION, DLP CONSULT NOTE DR. CAMPBELL 05-27-18: THE PATIENT HAS CARDIOGENIC SHOCK FROM CLASS IV HEART FAILURE TREATMENTS: CONSULT NOTE DR. CUETO 05-27-18: STOP COREG, HOLD LASIX FOR NOW CONSULT NOTE DR. CAMPBELL 05-27-18: W WOULD CONSIDER DISCONTINUING THE METFORMIN GIVEN HIS RENAL INSUFFICIENCY AND JUST USING INSULIN FOR THE TIME BEING. (This form is maintained as a part of the permanent medical record) 2014 [email or web address]. All Rights Reserved [email or web address] Office: [phone] [email or web address]
[2018-05-28] MEDS: Ondansetron HCl/PF 4 MG/2 ML Vial IVP PRN (13:11)
[2018-05-28] MEDS: Guaifenesin DM 100-10/5 ML UDCUP PO PRN ×2 (17:24→21:32)
[2018-05-28] MEDS: Thiamine HCl 200 MG/2 ML VIAL SLOW IVP SCH (17:37)
--- NOTE | 2018-05-28 18:34 | PDOC.PN ---
- Subjective Encounter Start Date: 05/28/18 Encounter Start Time: 09:00 Pt seen for followup re: cardiogenic shock. Denies chest pain or shortness of breath. - Objective MAR Reviewed: Yes Vital Signs & Weight: Vital Signs (12 hours) Temp Pulse Ox 05/28/18 16:00 99.1 F 05/28/18 12:00 98.6 F 05/28/18 08:00 98.7 F 96 05/28/18 07:05 100 Weight Admit Weight 151 lb 11.2 oz Weight 148 lb 1 oz Most Recent Monitor Data Heart Rate from ECG 105 NIBP 96/70 NIBP BP-Mean 78 Respiration from ECG 17 SpO2 97 I&O: 05/27/18 05/28/18 05/29/18 06:59 06:59 06:59 Intake Total 464 539.6 1720 Output Total 950 1125 650 Balance -486 -585.4 1070 Result Diagrams: 05/28/18 04:40 05/28/18 04:40 Additional Labs: Accuchecks 05/28/18 05/28/18 05/28/18 16:07 12:18 05:23 POC Glucose 210 H 259 H 203 H 05/27/18 22:03 POC Glucose 266 H EKG Reviewed by me: Yes (Tele: NSR) Phys Exam - Physical Examination Constitutional: NAD HEENT: moist MMs Neck: supple Venancio crackles Cardiovascular: RRR Gastrointestinal: soft Neurological: moves all 4 limbs Psychiatric: normal affect Dx/Plan (1) Cardiogenic shock Code(s): R57.0 - CARDIOGENIC SHOCK Status: Acute Comment: continue dobutamine and dopamine drips (2) Acute on chronic systolic heart failure, NYHA class 3 Code(s): I50.23 - ACUTE ON CHRONIC SYSTOLIC (CONGESTIVE) HEART FAILURE Status : Acute Comment: Lasix held due to hypotension (3) Cardiomyopathy Code(s): I42.9 - CARDIOMYOPATHY, UNSPECIFIED Status: Acute Comment: likely alcohol-induced cardiomyopathy. Cath normal (4) Acute renal failure superimposed on stage 2 chronic kidney disease Code(s): N17.9 - ACUTE KIDNEY FAILURE, UNSPECIFIED; N18.2 - CHRONIC KIDNEY DISEASE, STAGE 2 (MILD) Status: Acute Comment: Improving (5) Alcohol abuse Code(s): F10.10 - ALCOHOL ABUSE, UNCOMPLICATED Status: Chronic Comment: pt on ASE protocol (6) DM2 (diabetes mellitus, type 2) Status: Chronic Comment: continue insulin sliding scale (7) Dyslipidemia Code(s): E78.5 - HYPERLIPIDEMIA, UNSPECIFIED Status: Chronic Comment: continue statin - Plan * . Review of Systems - Review of Systems Cardiovascular: negative: chest pain, palpitations, orthopnea, paroxysmal nocturnal dyspnea, edema, light headedness Gastrointestinal: negative: Nausea, Vomiting, Abdominal Pain, Diarrhea, Constipation, Melena, Hematochezia - Medications/Allergies Allergies/Adverse Reactions: Allergies Allergy/AdvReac Type Severity Reaction Status Date / Time No Known Allergies Allergy Verified 05/23/18 23:28 Medications: Current Medications Acetaminophen (Tylenol) 650 mg PO Q4H PRN PRN Reason: Headache/Fever/Mild Pain (1-3) Acetaminophen/Codeine Phosphate (Tylenol #3) 1 tab PO Q4H PRN PRN Reason: Mild Pain (1-3) Acetaminophen/Codeine Phosphate (Tylenol #3) 2 tab PO Q4H PRN PRN Reason: Moderate Pain (4-6) Atorvastatin Calcium (Lipitor) 10 mg PO DAILY [facility] Last Admin: 05/28/18 11:16 Dose: 10 mg Benzonatate (Tessalon) 200 mg PO Q6H PRN PRN Reason: Cough Last Admin: 05/27/18 20:51 Dose: 200 mg Dextrose/Water (Dextrose 50%) 25 gm SLOW IVP PRN PRN PRN Reason: Hypoglycemia Enoxaparin Sodium (Lovenox) 40 mg SC 0900 [facility] Last Admin: 05/28/18 11:08 Dose: 40 mg Fluoxetine HCl (Prozac) 40 mg PO DAILY [facility] Last Admin: 05/28/18 11:08 Dose: 40 mg Glucagon (Glucagon) 1 mg IM PRN PRN PRN Reason: Hypoglycemia Glyburide (Diabeta) 10 mg PO 0730,1630 [facility] Last Admin: 05/28/18 17:23 Dose: 10 mg Guaifenesin/Dextromethorphan (Robitussin Dm) 15 ml PO Q4H PRN PRN Reason: Cough Last Admin: 05/28/18 17:24 Dose: 15 ml Dextrose/Water (D5w) 1,000 mls @ 0 mls/hr IV .Q0M PRN PRN Reason: Hypoglycemia Dobutamine HCl/Dextrose (Dobutamine 500 Mg/250 Ml) 250 mls @ 15.166 mls/hr IVPB INF FAVIO; Protocol Last Admin: 05/28/18 16:09 Dose: 250 mls Dopamine HCl/Dextrose (Dopamine/D5w) 250 mls @ 0 mls/hr IVPB INF FAVIO; Protocol Last Admin: 05/28/18 05:14 Dose: 250 mls Insulin Glargine 10 units/ (Miscellaneous Medication) 0.1 mls @ 0 mls/hr SC QAM [facility] Last Admin: 05/28/18 11:07 Dose: 0.1 mls Insulin Human Lispro (Humalog) 0 units SC .MILD SLIDING SCALE PRN PRN Reason: Mild Correctional Scale Last Admin: 05/28/18 16:10 Dose: 3 units Nitroglycerin (Nitrostat) 0.4 mg SL Q5MIN PRN PRN Reason: Chest Pain Ondansetron HCl (Zofran) 4 mg IVP Q6H PRN PRN Reason: Nausea/Vomiting Last Admin: 05/28/18 13:11 Dose: 4 mg Thiamine HCl (Thiamine Hcl) 100 mg SLOW IVP 1800 FAVIO Last Admin: 05/28/18 17:37 Dose: 100 mg Tramadol HCl (Ultram) 50 mg PO Q6H PRN PRN Reason: Moderate Pain (4-6)
[2018-05-29] MEDS: Acetaminophen/Codeine 30-300mg Tablet PO PRN ×2 (03:00→19:58)
[2018-05-29] MEDS: Guaifenesin DM 100-10/5 ML UDCUP PO PRN ×4 (03:33→21:25)
[2018-05-29 03:50] LABS: #Eosinphils 0.3 thou/uL (0.0-0.7); #Lymphocytes 1.3 thou/uL (1.20-3.40); #Monocytes 0.7 thou/uL (0.11-0.59); #Neutrophils 3.9 thou/uL (1.40-6.50); %Basophils 0.6 % (0.0-1.0); %Eosinophils 4.3 % (0.0-10.0); %Lymphocytes 20.3 % (21.0-51.0); %Monocytes 11.5 % (0.0-10.0); %Neutrophils 63.3 % (42.0-75.0); Hemoglobin 12.9 g/dL (14.0-18.0); Mean Corpuscular HGB CONC 32.5 g/dL (32.0-36.0); Mean Corpuscular Hemoglobin 31.9 pg (27.0-31.0); Mean Corpuscular Volume 98.1 fL (78.0-98.0); Mean Platelet Volume 8.2 fL (7.4-10.4); Platelet Count 203 thou/uL (130-400); RBC Distribution Width 11.7 % (11.5-14.5); Red Blood Cell (RBC) Count 4.06 mill/uL (4.70-6.10); White Blood Cell (WBC) Count 6.2 thou/uL (4.8-10.8)
[2018-05-29 04:12] LABS: Anion Gap 12 mmol/L (10-20); BUN (Urea Nitrogen) 31 mg/dL (8.9-20.6); Calc. Creatinine Clearance 91 mL/min (70-130); Calcium 8.4 mg/dL (7.8-10.44); Carbon Dioxide 26 mmol/L (22-29); Chloride 99 mmol/L (98-107); Estimated GFR-MDRD 86; Glucose 227 mg/dL (70-105); Magnesium 2.4 mg/dL (1.6-2.6); Phosphorus 2.5 mg/dL (2.3-4.7); Potassium 3.1 mmol/L (3.5-5.1); Sodium 134 mmol/L (136-145)
[2018-05-29] MEDS: Atorvastatin Calcium 10 MG TAB PO SCH (07:40)
[2018-05-29] MEDS: glyBURIDE 5 MG TAB PO SCH ×2 (07:40→17:44)
[2018-05-29] MEDS: Enoxaparin Sodium 40 MG/0.4 ML SYRINGE SC SCH (07:40)
[2018-05-29] MEDS: HumaLOG 300 UNITS/3 ML VIAL SC PRN ×3 (07:42→17:44)
[2018-05-29] MEDS: FLUoxetine HCl 20 MG CAP PO SCH (07:42)
[2018-05-29] MEDS ORDERED: Sodium Chloride 0.65% Nasal 44 ML BOT EA NARE PRN (07:50)
[2018-05-29] MEDS ORDERED: CCU Electrolyte Replacement 1 EACH FS ONE (07:51)
[2018-05-29] MEDS ORDERED: Potassium Chloride 40 MEQ in Sodium Chloride 0.9% 250 ML 250 ML IVPB PRN (08:04)
[2018-05-29] MEDS ORDERED: Potassium Chloride 40 MEQ in Premix Bag 1 BAG IVPB PRN (08:04)
[2018-05-29] MEDS ORDERED: Potassium Phosphate 9 MMOL in Sodium Chloride 0.9% 100 ML IVPB PRN (08:04)
[2018-05-29] MEDS ORDERED: Potassium Phosphate 15 MMOL in Sodium Chloride 0.9% 250 ML 250 ML IV PRN (08:04)
[2018-05-29] MEDS ORDERED: Potassium Phosphate 12 MMOL in Sodium Chloride 0.9% 250 ML 250 ML IV PRN (08:04)
[2018-05-29] MEDS ORDERED: Magnesium 2 GM/NS 0.9% 100 ML 2 GM in Premix Bag 1 BAG IVPB PRN (08:04)
[2018-05-29] MEDS ORDERED: Magnesium Oxide 400 MG TAB PO PRN ×2 (08:04)
--- NOTE | 2018-05-29 08:17 | PRG ---
DATE OF SERVICE: 05/29/2018 Thirty-five minutes critical care time. The patient remains in the ICU on continuous cardiac output monitoring. He says he is breathing a li ttle better. PHYSICAL EXAMINATION: VITAL SIGNS: Temperature is 98, pulse 96, blood pressure 107/76. He is currently on dobutamine at 1 0 mcg per kilogram per minute and on dopamine at 5 mcg per kilogram per minute. 24-hour intake 539, output 1125. Current cardiac index is about 2.4. FVR is running around 1300. Stroke volume around 50. HEENT: Unremarkable. NECK: No adenopathy or JVD. LUNGS: Clear without wheezing or rhonchi. CARDIOVASCULAR: S1, S2 regular. ABDOMEN: Soft, nontender. EXTREMITIES: No edema. LABORATORY DATA: Sodium 134, potassium 3.1, chloride 99, CO2 26, BUN 31, creatinine 0.9, glucose 227 . White blood cell count 6.2, hematocrit 39.8, platelet count 203. ASSESSMENT: 1. Cardiomyopathy with cardiogenic shock. 2. Diabetes mellitus. 3. Nonischemic cardiomyopathy. 4. Acute renal insufficiency, which has improved. 5. Alcoholism. PLAN: 1. Begin weaning vasopressors and inotropes when okay with Dr. Plascencia. 2. Replace potassium. 3. Continue to monitor electrolytes and CBC. 4. Increase the Lantus insulin dose.
[2018-05-29] MEDS: Potassium Chloride 20 MEQ TAB PO PRN (08:51)
[2018-05-29] MEDS: Insulin Glargine 20 UNITS in Pre-Filled Syringe 1 EACH SC SCH (10:36)
[2018-05-29] MEDS: DOBUTamine 500 mg/250 ml 250 ML IVPB SCH ×2 (11:00→21:53)
[2018-05-29] MEDS: DOPamine 400 MG/D5W 250 ML 250 ML IVPB SCH (11:02)
--- NOTE | 2018-05-29 15:53 | PDOC.PN ---
- Subjective Encounter Start Date: 05/29/18 Encounter Start Time: 09:20 Pt seen for followup re: cardiogenic shock. Denies chest pain or shortness of breath. - Objective MAR Reviewed: Yes Vital Signs & Weight: Vital Signs (12 hours) Temp Pulse Ox 05/29/18 12:00 98.6 F 05/29/18 08:00 98.0 F 94 L Weight Admit Weight 151 lb 11.2 oz Weight 151 lb Most Recent Monitor Data Heart Rate from ECG 104 NIBP 97/67 NIBP BP-Mean 77 Respiration from ECG 18 SpO2 96 I&O: 05/28/18 05/29/18 05/30/18 06:59 06:59 06:59 Intake Total 539.6 2020 720 Output Total 1125 1250 750 Balance -585.4 770 -30 Result Diagrams: 05/29/18 03:40 05/29/18 03:40 Additional Labs: Accuchecks 05/29/18 05/29/18 05/28/18 11:57 05:59 21:39 POC Glucose 317 H 214 H 196 H 05/28/18 16:07 POC Glucose 210 H EKG Reviewed by me: Yes (Tele: NSR) Phys Exam - Physical Examination Constitutional: NAD HEENT: moist MMs Neck: supple Respiratory: clear to auscultation bilateral Cardiovascular: RRR Gastrointestinal: soft Neurological: moves all 4 limbs Psychiatric: normal affect Skin: no rash Dx/Plan (1) Cardiogenic shock Code(s): R57.0 - CARDIOGENIC SHOCK Status: Acute Comment: pt being weaned off of dopamine today (2) Acute on chronic systolic heart failure, NYHA class 3 Code(s): I50.23 - ACUTE ON CHRONIC SYSTOLIC (CONGESTIVE) HEART FAILURE Status : Acute Comment: Lasix on hold (3) Cardiomyopathy Code(s): I42.9 - CARDIOMYOPATHY, UNSPECIFIED Status: Acute Comment: nonischemic cardiomyopathy. Blood pressure does not permit ACEI/ARB or beta anne-marie (4) Acute renal failure superimposed on stage 2 chronic kidney disease Code(s): N17.9 - ACUTE KIDNEY FAILURE, UNSPECIFIED; N18.2 - CHRONIC KIDNEY DISEASE, STAGE 2 (MILD) Status: Acute Comment: Improving (5) Alcohol abuse Code(s): F10.10 - ALCOHOL ABUSE, UNCOMPLICATED Status: Chronic Comment: continue ASE protocol (6) DM2 (diabetes mellitus, type 2) Status: Chronic Comment: lantus dose increased today (7) Dyslipidemia Code(s): E78.5 - HYPERLIPIDEMIA, UNSPECIFIED Status: Chronic Comment: continue statin - Plan * . pt is on electrolyte replacement protocol (hypokalemia) Review of Systems - Review of Systems Respiratory: negative: Cough, Shortness of Breath, SOB with Excertion, Pleuritic Pain, Wheezing Cardiovascular: negative: chest pain, palpitations, orthopnea, paroxysmal nocturnal dyspnea, edema, light headedness - Medications/Allergies Allergies/Adverse Reactions: Allergies Allergy/AdvReac Type Severity Reaction Status Date / Time No Known Allergies Allergy Verified 05/23/18 23:28 Medications: Current Medications Acetaminophen (Tylenol) 650 mg PO Q4H PRN PRN Reason: Headache/Fever/Mild Pain (1-3) Acetaminophen/Codeine Phosphate (Tylenol #3) 1 tab PO Q4H PRN PRN Reason: Mild Pain (1-3) Last Admin: 05/29/18 03:00 Dose: 1 tab Acetaminophen/Codeine Phosphate (Tylenol #3) 2 tab PO Q4H PRN PRN Reason: Moderate Pain (4-6) Atorvastatin Calcium (Lipitor) 10 mg PO DAILY [facility] Last Admin: 05/29/18 07:40 Dose: 10 mg Benzonatate (Tessalon) 200 mg PO Q6H PRN PRN Reason: Cough Last Admin: 05/27/18 20:51 Dose: 200 mg Dextrose/Water (Dextrose 50%) 25 gm SLOW IVP PRN PRN PRN Reason: Hypoglycemia Enoxaparin Sodium (Lovenox) 40 mg SC 0900 [facility] Last Admin: 05/29/18 07:40 Dose: 40 mg Fluoxetine HCl (Prozac) 40 mg PO DAILY [facility] Last Admin: 05/29/18 07:42 Dose: 40 mg Glucagon (Glucagon) 1 mg IM PRN PRN PRN Reason: Hypoglycemia Glyburide (Diabeta) 10 mg PO 0730,1630 [facility] Last Admin: 05/29/18 07:40 Dose: 10 mg Guaifenesin/Dextromethorphan (Robitussin Dm) 15 ml PO Q4H PRN PRN Reason: Cough Last Admin: 05/29/18 13:12 Dose: 15 ml Dextrose/Water (D5w) 1,000 mls @ 0 mls/hr IV .Q0M PRN PRN Reason: Hypoglycemia Dobutamine HCl/Dextrose (Dobutamine 500 Mg/250 Ml) 250 mls @ 15.166 mls/hr IVPB INF FAVIO; Protocol Last Admin: 05/29/18 11:00 Dose: 250 mls Dopamine HCl/Dextrose (Dopamine/D5w) 250 mls @ 0 mls/hr IVPB INF FAVIO; Protocol Last Admin: 05/29/18 11:02 Dose: 250 mls Insulin Glargine 20 units/ (Miscellaneous Medication) 0.2 mls @ 0 mls/[facility] Last Admin: 05/29/18 10:36 Dose: 0.2 mls Potassium Chloride 40 meq/ (Sodium Chloride) 270 mls @ 135 mls/hr IVPB ASDIR PRN PRN Reason: FOR SERUM K+ 2.5 - 3.5 Potassium Chloride 40 meq/ (Device) 100 mls @ 50 mls/hr IVPB ASDIR PRN PRN Reason: FOR SERUM K+ 2.5 - 3.5 Magnesium Sulfate 1 gm/ Sodium (Chloride) 102 mls @ 102 mls/hr IV PRN PRN PRN Reason: MAG LEVEL 1.4 - 2.0 Magnesium Sulfate 2 gm/ Device 100 mls @ 100 mls/hr IVPB ASDIR PRN PRN Reason: MAGNESIUM < 1.4 Potassium Phosphate 9 mmol/ (Sodium Chloride) 103 mls @ 25.75 mls/hr IVPB ASDIR PRN PRN Reason: Phosphate 1.0-1.8 Potassium Phosphate 12 mmol/ (Sodium Chloride) 254 mls @ 63.5 mls/hr IV ASDIR PRN PRN Reason: Serum phosphate 0.5-0.9 Potassium Phosphate 15 mmol/ (Sodium Chloride) 255 mls @ 63.75 mls/hr IV ASDIR PRN PRN Reason: Serum Phos < 0.5 Insulin Human Lispro (Humalog) 0 units SC .MILD SLIDING SCALE PRN PRN Reason: Mild Correctional Scale Last Admin: 05/29/18 11:57 Dose: 5 units Magnesium Oxide (Magnesium Oxide) 400 mg PO BIDPRN PRN PRN Reason: FOR SERUM MAG 1.4 - 2.0 Magnesium Oxide (Magnesium Oxide) 800 mg PO PRN PRN PRN Reason: FOR SERUM MAG < 1.4 Miscellaneous Medication (Phos-Nak) 1 pkt PO TIDPRN PRN PRN Reason: FOR PHOS LEVEL 1.0 - 1.8 Miscellaneous Medication (Phos-Nak) 2 pkt PO TIDPRN PRN PRN Reason: FOR PHOS LEVEL 0.5 - 1.0 Nitroglycerin (Nitrostat) 0.4 mg SL Q5MIN PRN PRN Reason: Chest Pain Ondansetron HCl (Zofran) 4 mg IVP Q6H PRN PRN Reason: Nausea/Vomiting Last Admin: 05/28/18 13:11 Dose: 4 mg Potassium Chloride (K-Dur) 40 meq PO ASDIR PRN PRN Reason: FOR SERUM K+ 2.5 - 3.5 Last Admin: 05/29/18 08:51 Dose: 40 meq Potassium Chloride (Klor-Con) 40 meq PER TUBE ASDIR PRN PRN Reason: FOR SERUM K+ 2.5-3.5 Sodium Chloride ([place]al [place] 0.65%) 2 ml EA NARE TID PRN PRN Reason: Nasal Congestion Last Admin: 05/29/18 11:53 Dose: 2 spr Thiamine HCl (Thiamine Hcl) 100 mg SLOW IVP 1800 FAVIO Last Admin: 05/28/18 17:37 Dose: 100 mg Tramadol HCl (Ultram) 50 mg PO Q6H PRN PRN Reason: Moderate Pain (4-6)
--- NOTE | 2018-05-29 15:57 | PDOC.CTH ---
Cardiology Progress Note - Subjective Pt feels better this am. On dopamine and dobutamine. Non-invasive CV montioring noted. - Objective Vital Signs Temp Pulse Ox 05/29/18 12:00 98.6 F 05/29/18 08:00 98.0 F 94 L Admit Weight 151 lb 11.2 oz Weight 151 lb 05/28/18 05/29/18 05/30/18 06:59 06:59 06:59 Intake Total 539.6 2020 720 Output Total 1125 1250 750 Balance -585.4 770 -30 - Physical Examination General/Neuro: alert & oriented x3, NAD Neck: carotid US brisk, no JVD present Lungs: CTA, unlabored respirations Heart: PMI normal, RRR Abdomen: NT/ND, soft Extremities: + edema B - Telemetry Telemetry Rhythm: SR - Labs Result Diagrams: 05/29/18 03:40 05/29/18 03:40 Troponin/CKMB Troponin I Less than 0.010 ng/mL (< 0.028) 05/24/18 05:28 - Assessment/Plan NICM EtOH abuse Symptoms have improved. CI overall 2.8 to 3.1 per CV monitoring Will attempt to wean off dopamine and dobutrex Attempt at weaning off dopamine first then slowly wean off dobutamine
[2018-05-29] MEDS: Thiamine HCl 200 MG/2 ML VIAL SLOW IVP SCH (21:26)
[2018-05-30 03:48] LABS: #Eosinphils 0.1 thou/uL (0.0-0.7); #Monocytes 0.7 thou/uL (0.11-0.59); #Neutrophils 3.8 thou/uL (1.40-6.50); %Basophils 0.1 % (0.0-1.0); %Eosinophils 1.8 % (0.0-10.0); %Lymphocytes 17.9 % (21.0-51.0); %Monocytes 11.7 % (0.0-10.0); %Neutrophils 68.5 % (42.0-75.0); Hemoglobin 12.9 g/dL (14.0-18.0); Mean Corpuscular HGB CONC 33.4 g/dL (32.0-36.0); Mean Corpuscular Volume 98.9 fL (78.0-98.0); Mean Platelet Volume 7.8 fL (7.4-10.4); Platelet Count 193 thou/uL (130-400); RBC Distribution Width 11.8 % (11.5-14.5); White Blood Cell (WBC) Count 5.6 thou/uL (4.8-10.8)
[2018-05-30 04:07] LABS: Anion Gap 11 mmol/L (10-20); BUN (Urea Nitrogen) 30 mg/dL (8.9-20.6); Calc. Creatinine Clearance 99 mL/min (70-130); Calcium 8.5 mg/dL (7.8-10.44); Carbon Dioxide 26 mmol/L (22-29); Chloride 99 mmol/L (98-107); Estimated GFR-MDRD Greater than 90; Glucose 110 mg/dL (70-105); Magnesium 2.5 mg/dL (1.6-2.6); Phosphorus 2.7 mg/dL (2.3-4.7); Potassium 3.2 mmol/L (3.5-5.1); Sodium 133 mmol/L (136-145)
[2018-05-30 06:01] VITALS: BMI 21.5
[2018-05-30] MEDS: Ondansetron HCl/PF 4 MG/2 ML Vial IVP PRN (06:03)
--- NOTE | 2018-05-30 07:33 | PDOC.PULPN ---
Progress Note: Subj/Obj - Subjective Date: 05/30/18 Time: 07:32 Narrative: Short of breath at rest - ROS Constitutional: weakness Cardiovascular: orthopnea, paroxysmal nocturnal dyspnea Respiratory: short of breath - Objective Allergies/Adverse Reactions: Allergies Allergy/AdvReac Type Severity Reaction Status Date / Time No Known Allergies Allergy Verified 05/23/18 23:28 MAR Reviewed: Yes Vital Signs: Vital Signs Temp 98.1 F 05/30/18 00:00 Pulse 91 05/29/18 00:00 Resp 20 05/28/18 19:59 BP 106/70 05/29/18 00:00 Pulse Ox 96 05/29/18 20:00 Intake & Output 05/29/18 05/30/18 05/30/18 18:59 06:59 18:59 Intake Total 1956 Output Total 750 500 Balance 1206 -500 Weight 151 lb 153 lb 14.122 oz Intake: Intake, IV Amount 756 DOBUTamine 500 mg/250 ml 513 250 ml @ 7.5 MCG/KG/MIN 15.166 mls/hr IVPB INF FAVIO Rx#:[id number] DOPamine 400 MG/D5W 250 243 ML 250 ml @ As Directed IVPB INF FAVIO Rx#:[id number] Oral 720 Oral Supplement 480 Output: Urine 750 500 Other: Voiding Method Urinal Urinal Currently on dobutrex at 10 mcg/kg/min Progress Note: Exam - Physical Exam Constitutional: NAD HEENT: PERRLA, sclera anicteric Neck: no nodes Deviation from normal: 6cm JVD Cardiovascular: RRR Deviation from normal: few crackles in both bases Gastrointestinal: soft, non-tender Musculoskeletal: no edema Neurological: non-focal Lymphatic: no nodes Psychiatric: normal affect, A&O x 3 Skin: no rash Progress Note: Data - Labs Result Diagrams: 05/30/18 03:27 05/30/18 03:27 Progress Note: A/P - Problems (1) Acute on chronic systolic heart failure, NYHA class 3 Current Visit: Yes Status: Acute Code(s): I50.23 - ACUTE ON CHRONIC SYSTOLIC (CONGESTIVE) HEART FAILURE (2) Cardiogenic shock Current Visit: Yes Status: Acute Code(s): R57.0 - CARDIOGENIC SHOCK (3) Cardiomyopathy Current Visit: Yes Status: Acute Code(s): I42.9 - CARDIOMYOPATHY, UNSPECIFIED (4) Chronic kidney disease, stage 2 (mild) Current Visit: Yes Status: Acute Code(s): N18.2 - CHRONIC KIDNEY DISEASE, STAGE 2 (MILD) (5) Alcohol abuse Current Visit: Yes Status: Chronic Code(s): F10.10 - ALCOHOL ABUSE, UNCOMPLICATED (6) DM2 (diabetes mellitus, type 2) Current Visit: Yes Status: Chronic - Time Spent with Patient Time (minutes): 30 (cc time) - Plan Plan: Wean dobutrex as tolerated Replace Potassium Blood sugar control
[2018-05-30 09:18] VITALS: BP 102/78
[2018-05-30] MEDS: glyBURIDE 5 MG TAB PO SCH ×2 (09:34→17:56)
[2018-05-30] MEDS: Enoxaparin Sodium 40 MG/0.4 ML SYRINGE SC SCH (09:35)
[2018-05-30] MEDS: Acetaminophen/Codeine 30-300mg Tablet PO PRN ×2 (09:36→18:05)
[2018-05-30] MEDS: FLUoxetine HCl 20 MG CAP PO SCH (09:36)
[2018-05-30] MEDS: Insulin Glargine 20 UNITS in Pre-Filled Syringe 1 EACH SC SCH (09:38)
--- NOTE | 2018-05-30 14:03 | PRG ---
DATE OF SERVICE: 05/30/2018 SUBJECTIVE: Mr. Bhagat states he is feeling better today. He has been weaned off his dopamine and dobutamine over the last 24 hours. His blood pressure has been in the 100s. OBJECTIVE: VITAL SIGNS: Blood pressure 100/70, pulse 90, temperature afebrile. LUNGS: Minimal crackles bilaterally. CARDIAC: Regular rate and rhythm. ABDOMEN: Soft, nontender, nondistended. EXTREMITIES: No edema. IMPRESSION: 1. Nonischemic cardiomyopathy. 2. Alcohol abuse. RECOMMENDATIONS: LVEF likely related to alcohol use. At this point, we would like to monitor over the next several days. We would like to try and start low dose beta anne-marie therapy if blood pressure tolerates. If he does require more dopamine and dobutamine for blood pressure support, I would likely recommend a transfer to [place] for further recommendations. Otherwise, he appears to be slowly improving. Addendun: This afternoon, pt continues with SOB and hypotension off dobutrex and dopamine. CVP 15mmHg. Cannot diurese pt secondary to hypotension. Discussed with pt and family. Given no significant improvement over the last 3 days, they would like to go to a center of higher care. I will transfer pt to [facility] for further recommendations.. I will restart /dop. MTDD
[2018-05-30] MEDS: Potassium Chloride 20 MEQ TAB PO PRN (14:11)
[2018-05-30] MEDS: Guaifenesin DM 100-10/5 ML UDCUP PO PRN (14:12)
[2018-05-30] MEDS: HumaLOG 300 UNITS/3 ML VIAL SC PRN ×2 (14:12→17:59)
[2018-05-30] MEDS: Atorvastatin Calcium 10 MG TAB PO SCH (16:50)
--- NOTE | 2018-05-30 17:22 | DIS ---
DATE OF ADMISSION: 05/23/2018 DATE OF DISCHARGE: 05/30/2018 PRIMARY CARE PROVIDER: Dr. Darrel Pressley. DISCHARGE DIAGNOSES: 1. Cardiogenic shock. 2. Nonischemic cardiomyopathy. 3. Acute on chronic systolic congestive heart failure, NYHA class 3. 4. Acute renal failure superimposed on stage II chronic kidney disease. CONDITION OF PATIENT ON THE DAY OF DISCHARGE: I assessed Mr. Bhagat on the day of discharge. He is still hypotensive, needing dobutamine. He denies any chest pain or shortness of breath. S1 and S2 are heard, regular. Lung examination reveals bibasilar crackles. HOSPITAL COURSE: Mr. Bhagat is a pleasant 47-year-old gentleman who was admitted to [facility] on 05/23/2018 for acute new onset congestive heart failure. He was treated with diuretics. He also has a history of daily alcohol use. A 2D echocardiogram showed left ventricular ejection fraction of 15%-20%, dilated left ventricle, normal right ventricle structure and function and normal left atrial size. He had moderate to severe tricuspid regurgitation. He was continued on diuretics and was seen by Cardiology Service. On 05/27/2018 , he was transferred to the Critical Care Unit because of hypotension. He was started on dopamine and dobutamine. Beta blockers and Lasix were on hold. He continued to be hypotensive. On 05/29/2018, dopamine was weaned off, but he continued to need dobutamine. Cardiology Service discussed with family. He is being transferred to [facility] for a higher level of care and further recommendations. He is being sent there on dobutamine and dopamine drips. DISCHARGE MEDICATIONS: As listed on the MAR being sent to [facility]. LABORATORY DATA: On the day of discharge, he has white count 5,600, hemoglobin 12.9, platelet count 193,000. Sodium 133, potassium 3.2, and creatinine 0.88. Many thanks for allowing me to participate in your patient's care. Please feel free to contact me with any questions or concerns. DISCHARGE DESTINATION: [facility]. TOTAL AMOUNT OF TIME SPENT COORDINATING THIS DISCHARGE: 31 minutes. NINO
[2018-05-30 17:49] VITALS: TEMP 97.6
[2018-05-30] MEDS: Thiamine HCl 200 MG/2 ML VIAL SLOW IVP SCH (18:27)
== END 2018-05-30 19:37 | disposition short-term general hospital (02) | DRG 286 ==
LOC: ERS 20:20 → 2NO 20:55 → CCU 05-27 17:30
PROVIDERS: ADMIT Hospitalist; ATTEND Hospitalist
PROC: 4A023N7 Measurement of Cardiac Sampling and Pressure, Left Heart, Percutaneous Approach (ICD-10-PCS; principal; 2018-05-26)
PROC: B2111ZZ Fluoroscopy of Multiple Coronary Arteries using Low Osmolar Contrast (ICD-10-PCS; 2018-05-26)
PROC: B2151ZZ Fluoroscopy of Left Heart using Low Osmolar Contrast (ICD-10-PCS; 2018-05-26)
PROC: 05HM33Z Insertion of Infusion Device into Right Internal Jugular Vein, Percutaneous Approach (ICD-10-PCS; 2018-05-27)
PROC: B543ZZA Ultrasonography of Right Jugular Veins, Guidance (ICD-10-PCS; 2018-05-27)
DX: I13.0 Hypertensive heart and chronic kidney disease with heart failure and stage 1 through stage 4 chronic kidney disease, or unspecified chronic kidney disease (principal); I50.23 Acute on chronic systolic (congestive) heart failure; R57.0 Cardiogenic shock; N17.9 Acute kidney failure, unspecified; J98.11 Atelectasis; I42.8 Other cardiomyopathies; F10.10 Alcohol abuse, uncomplicated; E11.22 Type 2 diabetes mellitus with diabetic chronic kidney disease; I95.9 Hypotension, unspecified; E78.5 Hyperlipidemia, unspecified; F32.9 Major depressive disorder, single episode, unspecified; N18.2 Chronic kidney disease, stage 2 (mild); Z79.899 Other long term (current) drug therapy
CPT/HCPCS: 36415; 36416; 71045; 71046; 80048; 83735; 83880; 84100; 84443; 84484; 85025; 87040; 93306; 93458; 93798; 99152; 99285; C1769; J1250; J1265; J1644; J1650; J1940; J2001; J2250; J2405; J3010; J3411; J3480

== ENCOUNTER 2020-08-26 10:49 | Emergency (ER) | payer OTHER, SELFPAY ==
[2020-08-26] MEDS ORDERED: Rocuronium Bromide 10 MG/ML (10ML VIAL) ONE (11:01)
[2020-08-26] MEDS ORDERED: Calcium Chloride 1 GM/10 ML Abboject SYRINGE ONE (12:56)
[2020-08-26] MEDS ORDERED: EPINEPHrine 1 MG/10 ML Abboject SYRINGE ONE (12:56)
[2020-08-26] MEDS ORDERED: Sodium Bicarb 50 MEQ/50 ML Abboject 8.4% SYRINGE ONE (12:56)
== END 2020-08-26 11:06 ==
LOC: ERS 10:49
DX: I46.9 Cardiac arrest, cause unspecified (principal)
CPT/HCPCS: 31500; 94760; 96374; 96375; J0171